=== PATIENT | male | born 1985 | race Caucasian/White ===

== ENCOUNTER 2018-03-05 21:07 | Emergency (ER) | payer SELFPAY ==
[2018-03-05] MEDS ORDERED: Fluorescein Opthalmic Strip ONE (22:09)
[2018-03-05] MEDS ORDERED: Proparacaine 0.5% Opth 15 ML BOT ONE (22:10)
[2018-03-05] MEDS ORDERED: Acetaminophen 500 MG TAB ONE (22:48)
== END 2018-03-05 22:56 | disposition home or self-care (01) ==
LOC: ERS 21:07
DX: S05.01XA Injury of conjunctiva and corneal abrasion without foreign body, right eye, initial encounter (principal); F17.210 Nicotine dependence, cigarettes, uncomplicated; X58.XXXA Exposure to other specified factors, initial encounter
CPT/HCPCS: 99283

== ENCOUNTER 2018-07-14 19:00 | Emergency (ER) | payer SELFPAY | END 2018-07-14 20:00 | disposition home or self-care (01) | LOC: ERS 19:00 | DX: K04.7 Periapical abscess without sinus (principal); K02.9 Dental caries, unspecified; Z87.891 Personal history of nicotine dependence | CPT/HCPCS: 41800 ==